=== PATIENT | female | born 1955 | race Two or more races ===

== ENCOUNTER 2021-11-04 12:58 | Outpatient (CLI) | payer OTHER | END 2021-11-04 13:02 | disposition home or self-care (01) | LOC: RAD 12:58 | DX: M79.642 Pain in left hand (principal) ==

== ENCOUNTER 2022-04-18 14:01 | Outpatient (CLI) | payer OTHER | END 2022-04-18 14:04 | disposition home or self-care (01) | LOC: RAD 14:01 | PROVIDERS: ATTEND Orthopaedic Surgery | DX: S62.613D Displaced fracture of proximal phalanx of left middle finger, subsequent encounter for fracture with routine healing (principal); S62.615D Displaced fracture of proximal phalanx of left ring finger, subsequent encounter for fracture with routine healing; S62.617D Displaced fracture of proximal phalanx of left little finger, subsequent encounter for fracture with routine healing ==

== ENCOUNTER 2024-07-07 13:36 | Emergency (ER) | payer OTHER ==
[~2024-07-07] VITALS: Ht 170.2 cm; Wt 69.4 kg
[2024-07-07] MEDS ORDERED: IPRATROPIUM BROMIDE 0.5 MG/2.5 ML AMPUL.NEB IH SCH (14:45)
[2024-07-07] MEDS ORDERED: METHYLPREDNISOLONE SOD SUCC 125 MG VIAL IV ONE (14:45)
[2024-07-07] MEDS ORDERED: AZITHROMYCIN 500 MG TABLET PO ONE (14:45)
[2024-07-07] MEDS ORDERED: GUAIFENESIN 200 MG/10 ML BLIST.PACK PO ONE (14:45)
[2024-07-07] MEDS ORDERED: LEVALBUTEROL HCL 1.25 MG/3 ML SOLUTION IH SCH (14:45)
[2024-07-07 14:55] LABS: HEMATOCRIT 38.1 % (36.0-45.00); HEMOGLOBIN 13.1 g/dL (12.0-15.00); MEAN CELL VOLUME 93.1 fL (80.00-100.00); MEAN CORPUSCULAR HEMOGLOBIN 31.9 pg (27.00-32.0); MEAN CORPUSCULAR HGB CONC 34.2 g/dl (32.0-36.0); PLATELET COUNT 138 K/uL (150-450); RED CELL DISTRIBUTION WIDTH 13.6 % (11.5-14.5)
[2024-07-07] MEDS ORDERED: ZITHROMAX500 MG PO (16:58)
[2024-07-07] MEDS ORDERED: TUSSIN DM LIQU118 ML PO (16:58)
== END 2024-07-07 17:33 | disposition home or self-care (01) ==
LOC: ER 13:37
PROVIDERS: Nurse Practitioner Family
DX: J06.9 Acute upper respiratory infection, unspecified (principal); Z20.822 Contact with and (suspected) exposure to COVID-19

== ENCOUNTER 2024-08-21 17:48 | Emergency (ER) | payer OTHER ==
[~2024-08-21] VITALS: Ht 170.2 cm; Wt 68.0 kg
[~2024-08-21 17:48] MED LIST: TUSSIN DM LIQU118 ML PO; ZITHROMAX500 MG PO
[2024-08-21] MEDS ORDERED: ORPHENADRINE CITRATE 30 MG/ML AMPUL IM STA (18:39)
[2024-08-21] MEDS ORDERED: KETOROLAC TROMETHAMINE 30 MG VIAL IM STA (18:39)
== END 2024-08-21 18:57 | disposition home or self-care (01) ==
LOC: ER 17:51
DX: R51.9 Headache, unspecified (principal)
CPT/HCPCS: 96372; 99282; J1885; J3490

== ENCOUNTER 2024-09-21 09:40 | Inpatient (IN) | payer OTHER ==
[~2024-09-21] VITALS: Ht 170.2 cm; Wt 68.0 kg
[2024-09-21] MEDS ORDERED: CLONAZEPAM2 M1 PO (10:00)
[2024-09-21] MEDS ORDERED: NORVASC5 MG PO (10:00)
--- NOTE | 2024-09-21 10:00 | NUR ---
PTE ALERTA Y ORIENTADA X3 REFEIRE TENER DOLOR DE JOHN INTENSO Y DOLOR DE CUERPO DESDE ANOCHE. SE MIDEN SV Y SE UBICA.
[2024-09-21] MEDS ORDERED: BUTALB/ACETAMINOPHEN/CAFFEINE 1 TAB TABLET PO ONE (10:45)
[2024-09-21] MEDS ORDERED: 0.9 % SODIUM CHLORIDE 1,000 ML IV ONE ×2 (10:45→12:00)
--- NOTE | 2024-09-21 11:24 | NUR ---
SE LE ORIENTA A PACIENTE SOBRE LA ORDEN MEDICA, REFIERE ENTENDER LAS MISMAS. SE CANALIZA Y SE LE COLOCA EL IVF'S, SE LE INDRA LAS MUETRAS Y SE LE DAMINSITRAN LOS MEDICAMENTOS CALLIE LA ORDEN MEDICA.
[2024-09-21 11:35] LABS: HEMATOCRIT 41.4 % (36.0-45.00); HEMOGLOBIN 14.4 g/dL (12.0-15.00); MEAN CELL VOLUME 92.1 fL (80.00-100.00); MEAN CORPUSCULAR HGB CONC 34.7 g/dl (32.0-36.0); PLATELET COUNT 70 K/uL (150-450); RED BLOOD COUNT 4.49 M/uL (4.00-6.00); RED CELL DISTRIBUTION WIDTH 13.9 % (11.5-14.5)
[2024-09-21 15:09] LABS: HEMATOCRIT 36.7 % (36.0-45.00); HEMOGLOBIN 12.6 g/dL (12.0-15.00); MEAN CELL VOLUME 92.7 fL (80.00-100.00); MEAN CORPUSCULAR HEMOGLOBIN 31.8 pg (27.00-32.0); MEAN CORPUSCULAR HGB CONC 34.3 g/dl (32.0-36.0); RED BLOOD COUNT 3.96 M/uL (4.00-6.00); RED CELL DISTRIBUTION WIDTH 13.9 % (11.5-14.5)
[2024-09-21 15:12] LABS: PLATELET COUNT 61 K/uL (150-450)
--- NOTE | 2024-09-21 15:54 | NUR ---
PTE ALERTA Y ORIENTADA X 3 ESFERAS EN COSME CON BARANDAS ELEVADAS,SIN FAMILIAR AL MOMENTO DE LA DOUG.AREA DE VENOPUNCION PATENTE Y DULCE DE EDEMA CON FLUIDOS DE MANTENIMIENTO BAJANDO SIN DIFICULTAD.
--- NOTE | 2024-09-21 15:55 | NUR ---
PENDIENTE A EVALUACION DE DR SÁNCHEZ.
[2024-09-21] MEDS ORDERED: ACETAMINOPHEN 500 MG GEL..CAP PO ONE (18:30)
[2024-09-21] MEDS ORDERED: 0.9 % SODIUM CHLORIDE 1,000 ML IV SCH (18:30)
[2024-09-21 20:18] LABS: INR 0.99; PARTIAL THROMBOPLASTIN TIME 29.1 SECONDS (22.0-34.0); PROTHROMBIN TIME 10.8 SECONDS (9.0-11.5)
[2024-09-21 20:21] LABS: ALBUMIN 3.3 gm/dL (3.4-5.0); BILIRUBIN TOTAL 0.25 mg/dL (0.3-1.2); CREATININE SERUM 0.64 mg/dL (0.55-1.02); GFR 91.47; GLOBULINA 3.1 G/DL (2.4-3.5); POTASSIUM 3.03 mEq/L (3.5-5.1); TOTAL PROTEIN 6.4 gm/dL (6.4-8.2)
[2024-09-21] MEDS ORDERED: PANTOPRAZOLE SODIUM 40 MG/VIAL VIAL IV SCH (21:37)
[2024-09-21] MEDS ORDERED: CLONAZEPAM 1 MG TABLET PO SCH (21:45)
[2024-09-21] MEDS ORDERED: POTASSIUM CHLORIDE 20MEQ/100ML H2O PB IV ONE (21:45)
[2024-09-21] MEDS ORDERED: ACETAMINOPHEN 500 MG GEL..CAP PO PRN (21:45)
[2024-09-22 02:37] VITALS: BP 121/74; O2SAT 97
[2024-09-22 03:15] VITALS: BP 127/79; O2SAT 98
[2024-09-22 05:21] LABS: PH,URINE 7.5 (5.0-8.0); URINE APPEARANCE Clear; URINE BILIRRUBIN Negative (NEGATIVE); URINE BLOOD Negative; URINE COLOR Yellow; URINE GLUCOSE Negative (NEGATIVE); URINE KETONE Negative (NEGATIVE); URINE LEUKOCYTE Negative; URINE NITRATE Negative; URINE PROTEIN Negative (NEGATIVE); URINE UROBILINOGEN 0.2 E.U./dl
[2024-09-22 05:22] LABS: URINE BACTERIA 32.7 uL (0.0-1933); URINE EPITHELIAL CELLS 4.9 uL (0.0-38.8); URINE RBC 3.2 uL (0.0-20.8); URINE WBC 4.1 uL (0.0-23.2)
[2024-09-22 07:35] LABS: HEMATOCRIT 36.9 % (36.0-45.00); HEMOGLOBIN 12.7 g/dL (12.0-15.00); MEAN CELL VOLUME 92.3 fL (80.00-100.00); MEAN CORPUSCULAR HEMOGLOBIN 31.7 pg (27.00-32.0); MEAN CORPUSCULAR HGB CONC 34.3 g/dl (32.0-36.0); RED BLOOD COUNT 3.99 M/uL (4.00-6.00)
[2024-09-22 07:47] LABS: PLATELET COUNT 51 K/uL (150-450)
[2024-09-22 08:27] VITALS: BP 107/72; O2SAT 95
[2024-09-22] MEDS ORDERED: AMLODIPINE BESYLATE 5 MG TABLET PO SCH (09:00)
[2024-09-22 16:04] VITALS: BP 140/84; O2SAT 96
[2024-09-22] MEDS ORDERED: CLONAZEPAM 1 MG TABLET PO SCH (21:00)
[2024-09-23] VITALS: BP 113/74; O2SAT 98
[2024-09-23 07:17] LABS: HEMATOCRIT 36.9 % (36.0-45.00); HEMOGLOBIN 12.7 g/dL (12.0-15.00); MEAN CELL VOLUME 92.2 fL (80.00-100.00); MEAN CORPUSCULAR HEMOGLOBIN 31.8 pg (27.00-32.0); MEAN CORPUSCULAR HGB CONC 34.5 g/dl (32.0-36.0); RED CELL DISTRIBUTION WIDTH 14.1 % (11.5-14.5)
[2024-09-23 07:19] LABS: ALBUMIN 3.1 gm/dL (3.4-5.0); BILIRUBIN TOTAL 0.33 mg/dL (0.3-1.2); CALCIUM 8.1 mg/dL (8.5-10.1); CREATININE SERUM 0.45 mg/dL (0.55-1.02); GFR 137.35; GLOBULINA 2.6 G/DL (2.4-3.5); POTASSIUM 3.5 mEq/L (3.5-5.1); TOTAL PROTEIN 5.7 gm/dL (6.4-8.2)
[2024-09-23 07:27] LABS: PLATELET COUNT 41 K/uL (150-450)
[2024-09-23 08:55] VITALS: BP 122/78; O2SAT 97
[2024-09-23 17:37] VITALS: BP 1114/76; O2SAT 99
[2024-09-24] VITALS: BP 121/78; O2SAT 99
[2024-09-24 08:00] VITALS: BP 103/60; O2SAT 98
[2024-09-24 09:37] LABS: HEMATOCRIT 37.8 % (36.0-45.00); MEAN CELL VOLUME 92.3 fL (80.00-100.00); MEAN CORPUSCULAR HEMOGLOBIN 31.8 pg (27.00-32.0); MEAN CORPUSCULAR HGB CONC 34.5 g/dl (32.0-36.0); RED BLOOD COUNT 4.09 M/uL (4.00-6.00); RED CELL DISTRIBUTION WIDTH 14.4 % (11.5-14.5)
[2024-09-24 09:54] LABS: PLATELET COUNT 36 K/uL (150-450)
[2024-09-24 16:00] VITALS: BP 128/88; O2SAT 99
[2024-09-25 00:53] VITALS: BP 100/58; O2SAT 99
[2024-09-25 08:12] LABS: HEMATOCRIT 36.2 % (36.0-45.00); HEMOGLOBIN 12.7 g/dL (12.0-15.00); MEAN CELL VOLUME 91.5 fL (80.00-100.00); RED BLOOD COUNT 3.96 M/uL (4.00-6.00); RED CELL DISTRIBUTION WIDTH 14.1 % (11.5-14.5)
[2024-09-25 08:22] LABS: PLATELET COUNT 43 K/uL (150-450)
[2024-09-25 10:42] VITALS: BP 107/64; O2SAT 100
[2024-09-25 17:56] VITALS: BP 105/77; O2SAT 98
[2024-09-26 00:54] VITALS: BP 90/60; O2SAT 99
[2024-09-26 06:34] LABS: HEMOGLOBIN 12.3 g/dL (12.0-15.00); MEAN CELL VOLUME 90.9 fL (80.00-100.00); MEAN CORPUSCULAR HGB CONC 35.2 g/dl (32.0-36.0); RED BLOOD COUNT 3.85 M/uL (4.00-6.00); RED CELL DISTRIBUTION WIDTH 14.2 % (11.5-14.5)
[2024-09-26 06:56] LABS: PLATELET COUNT 78 K/uL (150-450)
[2024-09-26 08:02] VITALS: BP 111/71; O2SAT 99
== END 2024-09-26 12:21 | disposition home or self-care (01) | DRG 866 ==
LOC: ER 09:42 → SURG 22:05
PROVIDERS: General Practice; ADMIT Internal Medicine; ATTEND Internal Medicine
PROC: BW28ZZZ Computerized Tomography (CT Scan) of Head (ICD-10-PCS; principal; 2024-09-21)
DX: A90 Dengue fever [classical dengue] (principal); E86.0 Dehydration; D69.6 Thrombocytopenia, unspecified; E87.6 Hypokalemia; I10 Essential (primary) hypertension

== ENCOUNTER 2024-11-10 13:47 | Emergency (ER) | payer OTHER ==
[~2024-11-10] VITALS: Ht 170.2 cm; Wt 74.8 kg
[~2024-11-10 13:47] MED LIST changes: +CLONAZEPAM2 M1 PO; +NORVASC5 MG PO
[2024-11-10] MEDS ORDERED: ORPHENADRINE CITRATE 30 MG/ML AMPUL IM ONE (14:30)
[2024-11-10] MEDS ORDERED: KETOROLAC TROMETHAMINE 60 MG VIAL IM ONE (14:30)
[2024-11-10] MEDS ORDERED: KETO10TA2 PO (15:50)
[2024-11-10] MEDS ORDERED: NORFLEX100MG PO (15:50)
== END 2024-11-10 16:00 | disposition home or self-care (01) ==
LOC: ER 13:49
DX: R07.81 Pleurodynia (principal); Z88.2 Allergy status to sulfonamides
CPT/HCPCS: 71111; 96372; 99283; J1885; J2360

== ENCOUNTER 2025-01-06 13:30 | Outpatient (CLI) | payer OTHER ==
[~2025-01-06 13:30] MED LIST changes: +KETO10TA2 PO; +NORFLEX100MG PO
== END 2025-01-06 13:31 | disposition home or self-care (01) ==
LOC: NUCLEAR 13:30
PROVIDERS: ATTEND Internal Medicine
DX: Z13.820 Encounter for screening for osteoporosis (principal); M81.0 Age-related osteoporosis without current pathological fracture